=== PATIENT | female | born 1965 | race Caucasian/White ===

== ENCOUNTER → 2017-02-13 | Outpatient (CLI) | payer MEDICAID | LOC: M RAD 12:18 | PROVIDERS: ATTEND Neurological Surgery | DX: I60.9 Nontraumatic subarachnoid hemorrhage, unspecified (principal) ==

== ENCOUNTER 2017-03-08 16:29 | Emergency (ER) | payer MEDICAID ==
[~2017-03-08] VITALS: Ht 162.6 cm; Wt 101.7 kg
[2017-03-08] MEDS ORDERED: ASPI1TAB PO (16:49)
[2017-03-08] MEDS ORDERED: LISI2.5T3 PO (16:49)
[2017-03-08] MEDS ORDERED: PLAV1TAB2 PO (16:53)
[2017-03-08] MEDS ORDERED: BUTA1CAP4 PO (16:54)
[2017-03-08] MEDS ORDERED: KEFL500C17 PO (16:55)
[2017-03-08] MEDS ORDERED: MECLIZINE 25 MG TABLET PO ONE (17:45)
[2017-03-08 18:10] LABS: METHADONE URINE NEGATIVE (NEGATIVE)
[2017-03-08 18:22] LABS: BASO # 0.1 K/mm3 (0.0-0.2); BASO % 0.6 % (0.0-1.0); EOS # 0.2 K/mm3 (0.0-0.50); EOS % 1.5 % (0.0-3.0); LARGE UNSTAINED CELL # 0.2 K/mm3 (0.0-0.4); LARGE UNSTAINED CELL % 1.5 % (0.0-4.0); LYMPH # 1.8 K/mm3 (1.5-4.5); LYMPH % 14.8 % (24.0-44.0); MEAN CORPUSCULAR HEMOGLOBIN 24.8 pg (27.0-33.0); MEAN CORPUSCULAR HGB CONC 30.7 g/dl (32.0-36.5); MEAN CORPUSCULAR VOLUME 80.8 fl (80.0-96.0); MONO # 0.6 K/mm3 (0.0-0.8); NEUTROPHILS # 9.4 K/mm3 (1.8-7.7); NEUTROPHILS % 76.7 % (36.0-66.0); PLATELET COUNT, AUTOMATED 454 k/mm3 (150-450); RED CELL DISTRIBUTION WIDTH 17.6 % (11.5-14.5); WHITE BLOOD COUNT 12.2 K/mm3 (4.0-10.0)
--- NOTE | 2017-03-08 18:23 | REP ---
Chest x-ray: Two views: History: Altered mental status. Comparison chest x-ray 09/26/2016. Findings: EKG monitoring electrodes overlie the chest. The heart is not enlarged. There is a minimal zone of linear fibrosis or discoid atelectasis in the left base. Lung rogers are otherwise clear. Pleural angles are sharp. Pulmonary vasculature is not increased. No significant bony abnormality is seen. Impression: Minimal zone of linear plate-like atelectasis or fibrosis left base. Otherwise no acute disease. Signed by Phoenix Pereira MD 03/08/2017 09:19 P
--- NOTE | 2017-03-08 18:23 | REP ---
Noncontrast head CT: History: Altered mental status. Comparison study: 03/08/2016. Findings: Metallic densities are again seen in the region of the suprasellar cistern consistent with prior embolotherapy with coiling. These are unchanged. West-white differentiation pattern is intact. No infarct or hemorrhage is seen. No mass or midline shift is seen. No extra-axial fluid collection is noted. No bony calvarial defect is appreciated. 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 No acute intracranial abnormality. Signed by Phoenix Pereira MD 03/08/2017 09:19 P
[2017-03-08 18:29] LABS: INR 0.96
[2017-03-08 18:46] LABS: ALBUMIN 3.4 GM/DL (3.2-5.2); ALBUMIN/GLOBULIN RATIO 1.06 (1.00-1.93); ALKALINE PHOSPHATASE 101 U/L (45-117); ALT/SGPT 19 U/L (12-78); ANION GAP 6 MEQ/L (8-16); AST/SGOT 12 U/L (15-37); BILIRUBIN,DIRECT < 0.1 MG/DL (0.0-0.2); BILIRUBIN,TOTAL 0.2 MG/DL (0.2-1.0); BLOOD UREA NITROGEN 18 MG/DL (7-18); CALCIUM LEVEL 9.1 MG/DL (8.5-10.1); CARBON DIOXIDE LEVEL 26 MEQ/L (21-32); CHLORIDE LEVEL 107 MEQ/L (98-107); GLOMERULAR FILTRATION RATE > 60.0 (>51); GLUCOSE, FASTING 109 MG/DL (70-105); POTASSIUM SERUM 4.1 MEQ/L (3.5-5.1); SODIUM LEVEL 139 MEQ/L (136-145); TOTAL PROTEIN 6.6 GM/DL (6.4-8.2)
[2017-03-08 19:07] VITALS: BP 138/77
[2017-03-08] MEDS ORDERED: MECL-68 PO (19:20)
--- NOTE | 2017-03-08 22:09 | ECGEPIP ---
Stationary ECG Study [facility] - ED Test Date: 2017-03-08 Pat Name: CHARANJIT GASCA Department: Room: - Gender: F Dance Instructor: : [id number] Requested By: MALENA SAM Order Number: [id number] Reading MD: Alayna Freedman Measurements Intervals [place] Rate: 76 P: 61 WV: 131 QRS: 75 QRSD: 115 T: 51 QT: 384 QTc: 433 Interpretive Statements SINUS RHYTHM WITH MARKED SINUS ARRHYTHMIA MODERATE INTRAVENTRICULAR CONDUCTION DELAY NTTW ABNORMALITY BASELINE ARTIFACT LIMITS INTERPRETATION NO PRIOR FOR COMPARISON Electronically Signed On 03-08-2017 22:08:51 EDT by Alayna Freedman
== END 2017-03-08 19:31 | disposition home or self-care (01) ==
LOC: M ED 16:29
DX: R42 Dizziness and giddiness (principal); I49.9 Cardiac arrhythmia, unspecified; Z79.899 Other long term (current) drug therapy; Z79.82 Long term (current) use of aspirin; Z79.02 Long term (current) use of antithrombotics/antiplatelets; Z88.8 Allergy status to other drugs, medicaments and biological substances; Z91.048 Other nonmedicinal substance allergy status; F17.210 Nicotine dependence, cigarettes, uncomplicated
CPT/HCPCS: 36415; 70450; 71020; 80048; 80076; 80307; 81001; 82140; 82550; 82553; 84443; 85025; 85610; 93005; 93041; 94760; 99285; G0480

== ENCOUNTER → 2018-04-24 | Outpatient (CLI) | payer MEDICAID | LOC: M RAD 07:53 | DX: C50.912 Malignant neoplasm of unspecified site of left female breast (principal); Z17.0 Estrogen receptor positive status [ER+]; Z79.811 Long term (current) use of aromatase inhibitors | CPT/HCPCS: 77066 ==

== ENCOUNTER → 2019-05-10 | Outpatient (CLI) | payer MEDICAID ==
[~2019-05-10] MED LIST: ASPI81TA26 PO; BUTA1CAP4 PO; KEFL500C17 PO; LISI-1046 PO; MECL-68 PO; PLAV1TAB2 PO
--- NOTE | 2019-05-10 11:58 | REP ---
CHEST, PA AND LATERAL: PA and lateral views of the chest are performed with three total views obtained. Comparison is made with prior study of 03/08/2017. There is mild patchy infiltrate in the left lung base. This is probably in the left lower lobe. There is also a very mild right perihilar infiltrate. The heart is normal in size. Mediastinal silhouette is unremarkable and unchanged. There is mild calcification of the thoracic aorta. There are mild degenerative changes of the spine. IMPRESSION: Relatively mild patchy infiltrate left lung base, also in the right perihilar region to a lesser extent. Recommend followup to resolution. Electronically Signed by Erlin West MD 05/10/2019 12:21 P
== END ==
LOC: M LRY 10:59
PROVIDERS: ATTEND Nurse Practitioner Family
DX: R09.89 Other specified symptoms and signs involving the circulatory and respiratory systems (principal); R91.8 Other nonspecific abnormal finding of lung field

== ENCOUNTER → 2021-10-05 | Outpatient (CLI) | payer MEDICAID ==
[~2021-10-05] MED LIST changes: -LISI-1046 PO; +LISI2.5T9 PO; -MECL-68 PO; +MECL1TAB31 PO
== END ==
LOC: M WHC 13:03
PROVIDERS: ATTEND Nurse Practitioner
DX: N63.20 Unspecified lump in the left breast, unspecified quadrant (principal); Z92.3 Personal history of irradiation; Z85.3 Personal history of malignant neoplasm of breast
CPT/HCPCS: 76642; 77066; G0279

== ENCOUNTER → 2022-01-04 | Outpatient (CLI) | payer MEDICAID | LOC: M RAD 07:56 | PROVIDERS: ATTEND Nurse Practitioner Family | DX: Z12.2 Encounter for screening for malignant neoplasm of respiratory organs (principal); F17.210 Nicotine dependence, cigarettes, uncomplicated ==